=== PATIENT | female | born 1980 | race Caucasian/White ===

== ENCOUNTER 2018-02-22 14:29 | Emergency (ER) | payer OTHER ==
[2018-02-22 14:55] VITALS: BP 124/75; PULSE 88; TEMP 99.2; BMI 28.0
[2018-02-22] MEDS ORDERED: KETOROLAC TROMETHAMINE 60 MG/2 ML VIAL IM ONE (15:14)
[2018-02-22] MEDS ORDERED: KETOROLAC TROMETHAMINE 60 MG/2 ML VIAL ONE (15:16)
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
== END 2018-02-22 15:55 | disposition home or self-care (01) ==
LOC: JERFT 14:29
PROC: 3E0233Z Introduction of Anti-inflammatory into Muscle, Percutaneous Approach (ICD-10-PCS; principal; 2018-02-22)
DX: S39.012A Strain of muscle, fascia and tendon of lower back, initial encounter (principal); F32.9 Major depressive disorder, single episode, unspecified; Z86.2 Personal history of diseases of the blood and blood-forming organs and certain disorders involving the immune mechanism; Z87.828 Personal history of other (healed) physical injury and trauma
CPT/HCPCS: 96372; 99281-25